=== PATIENT | female | born 1985 ===

== ENCOUNTER → 2017-11-27 | Outpatient (REF) ==
--- NOTE | 2017-11-27 16:21 | Diagnostic Imaging Report ---
Indication: Positive TB skin test. PA and lateral chest Heart and mediastinum are normal. Lungs are clear. There are no effusions or pneumothoraces. Impression: Negative chest. There is no radiographic evidence for tuberculosis. Dictated by: Dictated on workstation # [id number]
== END | disposition home or self-care (01) ==
LOC: OCC 15:35
PROVIDERS: ATTEND Nurse Practitioner Family
CPT/HCPCS: 71046